=== PATIENT | male | born 1940 | race Caucasian/White ===

== ENCOUNTER 2021-02-26 13:12 | Outpatient (CLI) | payer MEDICARE, OTHER ==
[~2021-02-26 13:12] MED LIST: Iopamidol 370 76% 100 ML VIAL ONE
== END 2021-02-26 13:13 | disposition home or self-care (01) ==
LOC: BICCT 13:12
PROVIDERS: ATTEND Internal Medicine Cardiovascular Disease
DX: I71.4 Abdominal aortic aneurysm, without rupture (principal); K80.20 Calculus of gallbladder without cholecystitis without obstruction
CPT/HCPCS: 74174; Q9967

== ENCOUNTER 2021-11-17 10:11 | Emergency (ER) | payer MEDICARE, OTHER | END 2021-11-17 12:15 | disposition home or self-care (01) | LOC: ERS 10:11 | DX: K12.30 Oral mucositis (ulcerative), unspecified (principal); J32.9 Chronic sinusitis, unspecified; I48.91 Unspecified atrial fibrillation; G62.9 Polyneuropathy, unspecified; G47.30 Sleep apnea, unspecified; Z87.19 Personal history of other diseases of the digestive system | CPT/HCPCS: 99283 ==

== ENCOUNTER 2021-12-09 10:58 | Emergency (ER) | payer OTHER, MEDICARE ==
[2021-12-09] MEDS ORDERED: Ibuprofen 800 MG TAB ONE (11:33)
[2021-12-09] MEDS ORDERED: Acetaminophen 500 MG TAB ONE (11:33)
== END 2021-12-09 13:30 | disposition home or self-care (01) ==
LOC: ERS 10:58
DX: S02.2XXA Fracture of nasal bones, initial encounter for closed fracture (principal); S00.83XA Contusion of other part of head, initial encounter; S60.416A Abrasion of right little finger, initial encounter; W01.198A Fall on same level from slipping, tripping and stumbling with subsequent striking against other object, initial encounter; G47.30 Sleep apnea, unspecified; I48.91 Unspecified atrial fibrillation
CPT/HCPCS: 70450; 70486; 72125

== ENCOUNTER 2022-06-18 11:40 | Outpatient (CLI) | payer MEDICARE, OTHER | END 2022-06-18 11:41 | disposition home or self-care (01) | LOC: LABBT 11:40 | PROVIDERS: ATTEND Physician Assistant Medical | DX: Z20.822 Contact with and (suspected) exposure to COVID-19 (principal) | CPT/HCPCS: 87811 ==

== ENCOUNTER 2022-06-21 10:24 | Outpatient (CLI) | payer MEDICARE, OTHER | END 2022-06-21 10:25 | disposition home or self-care (01) | LOC: RAD 10:24 | PROVIDERS: ATTEND Physician Assistant Medical | DX: K22.70 Barrett's esophagus without dysplasia (principal); K58.1 Irritable bowel syndrome with constipation; R13.14 Dysphagia, pharyngoesophageal phase; K21.9 Gastro-esophageal reflux disease without esophagitis | CPT/HCPCS: 74220 ==

== ENCOUNTER 2022-06-27 13:15 | Outpatient (CLI) | payer MEDICARE, OTHER | END 2022-06-27 13:16 | disposition home or self-care (01) | LOC: LABBT 13:15 | PROVIDERS: ATTEND Physician Assistant Medical | DX: Z20.822 Contact with and (suspected) exposure to COVID-19 (principal) | CPT/HCPCS: 87811 ==

== ENCOUNTER 2023-05-28 12:51 | Emergency (ER) | payer MEDICARE, OTHER ==
[2023-05-28 14:10] LABS: SARS-CoV-2 NAA Rapid Test DETECTED (NotDetected)
== END 2023-05-28 14:35 | disposition home or self-care (01) ==
LOC: ERS 12:51
DX: U07.1 COVID-19 (principal)
CPT/HCPCS: 0240U; 71045; 93005

== ENCOUNTER 2023-06-02 13:26 | Emergency (ER) | payer MEDICARE, OTHER ==
[2023-06-02] MEDS ORDERED: Dexamethasone 4 MG TAB ONE (14:32)
[2023-06-02] MEDS ORDERED: Albuterol 200 PUFF INH ONE (14:32)
== END 2023-06-02 15:02 | disposition home or self-care (01) ==
LOC: ERS 13:26
DX: U07.1 COVID-19 (principal); I48.91 Unspecified atrial fibrillation
CPT/HCPCS: 71045; J8540

== ENCOUNTER 2023-10-12 10:44 | Emergency (ER) | payer MEDICARE, OTHER ==
[2023-10-12] MEDS ORDERED: Iopamidol-370 76% 500 ML MDV (1 ML CHARGE) ONE (11:23)
[2023-10-12 11:35] LABS: #Eosinphils 0.1 thou/uL (0.0-0.7); #Monocytes 0.5 thou/uL (0.11-0.59); #Neutrophils 3.8 thou/uL (1.40-6.50); %Basophils 0.5 % (0.0-1.0); %Eosinophils 1.2 % (0.0-10.0); %Lymphocytes 24.3 % (21.0-51.0); %Monocytes 8.2 % (0.0-10.0); %Neutrophils 65.6 % (42.0-75.0); Hematocrit 47.7 % (42.0-52.0); Hemoglobin 16.8 g/dL (14.0-18.0); Mean Corpuscular HGB CONC 35.2 g/dL (32.0-36.0); Mean Corpuscular Hemoglobin 32.6 pg (27.0-31.0); Mean Corpuscular Volume 92.4 fl (78.0-98.0); Mean Platelet Volume 10.5 fL (7.4-10.4); Platelet Count 115 10x3/uL (130-400); RBC Distribution Width 13.3 % (11.5-14.5); Red Blood Cell (RBC) Count 5.16 mill/uL (4.70-6.10); White Blood Cell (WBC) Count 5.8 10x3/uL (4.8-10.8)
[2023-10-12 12:03] LABS: Troponin I Less than 0.010 ng/mL (< 0.028)
[2023-10-12 12:28] LABS: Albumin 4.2 g/dL (3.4-4.8)
[2023-10-12 12:29] LABS: Chloride 104 mmol/L (98-107); Potassium 4.2 mmol/L (3.5-5.1); Sodium 137 mmol/L (136-145)
[2023-10-12 12:30] LABS: Calcium 8.8 mg/dL (7.8-10.44)
[2023-10-12 12:31] LABS: Glucose 246 mg/dL (83-110); Protein, Total 7.2 g/dL (5.8-8.1)
[2023-10-12 12:32] LABS: Bilirubin, Total 0.7 mg/dL (0.2-1.2); Carbon Dioxide 20 mmol/L (23-31)
[2023-10-12 12:33] LABS: Alkaline Phosphatase 78 U/L (40-110)
[2023-10-12 12:34] LABS: Calc. Creatinine Clearance 0 mL/min (70-130); Estimated GFR 85
[2023-10-12 12:35] LABS: BUN (Urea Nitrogen) 16 mg/dL (8.4-25.7)
[2023-10-12 12:36] LABS: ALT (SGPT) 41 U/L (8-55); AST (SGOT) 43 U/L (5-34); Magnesium 1.7 mg/dL (1.6-2.6)
[2023-10-12] MEDS ORDERED: Morphine 4 MG/ML VIAL ONE (13:20)
[2023-10-12] MEDS ORDERED: Ondansetron PF 4 MG/2 ML Vial ONE (13:20)
[2023-10-12 13:36] LABS: Anion Gap 17 mmol/L (10-20)
[2023-10-12] MEDS ORDERED: Acetaminophen 500 MG TAB ONE (14:34)
[2023-10-12] MEDS ORDERED: Ketorolac Tromethamine 30 MG (1 mL) VIAL ONE (14:34)
== END 2023-10-12 15:25 | disposition home or self-care (01) ==
LOC: ERS 10:44
DX: M54.50 Low back pain, unspecified (principal); E11.65 Type 2 diabetes mellitus with hyperglycemia
CPT/HCPCS: 71045; 71275; 74174; 80053; 83735; 84484; 85025; 93005; 96374; 96375; J1885; J2270; J2405; Q9967

== ENCOUNTER 2024-03-17 06:58 | Emergency (ER) | payer MEDICARE, OTHER ==
[2024-03-17 08:07] LABS: #Basophils 0.03 10x3/uL (0.0-0.2); %Basophils 0.5 % (0.0-1.0); %Eosinophils 1.8 % (0.0-10.0); %Lymphocytes 33.8 % (21.0-51.0); %Monocytes 6.6 % (0.0-10.0); Hematocrit 47.6 % (42.0-52.0); Mean Corpuscular HGB CONC 33.6 g/dL (32.0-36.0); Mean Corpuscular Hemoglobin 32.1 pg (27.0-31.0); Mean Corpuscular Volume 95.4 fL (78.0-98.0); Mean Platelet Volume 10.5 fL (7.4-10.4); Platelet Count 101 10x3/uL (130-400); RBC Distribution Width 13.8 % (11.5-14.5); Red Blood Cell (RBC) Count 4.99 mill/uL (4.70-6.10)
[2024-03-17 08:09] LABS: ALT (SGPT) 36 U/L (8-55); AST (SGOT) 39 U/L (5-34); Albumin 3.9 g/dL (3.4-4.8); Alkaline Phosphatase 71 U/L (40-110); Anion Gap 17 mmol/L (10-20); BUN (Urea Nitrogen) 14 mg/dL (8.4-25.7); Bilirubin, Total 0.5 mg/dL (0.2-1.2); CRP,High Sensitivity (Inhouse) 0.09 mg/dL (< or = 0.5); Calc. Creatinine Clearance 0 mL/min (70-130); Calcium 8.9 mg/dL (7.8-10.44); Carbon Dioxide 21 mmol/L (23-31); Chloride 105 mmol/L (98-107); Estimated GFR 87; Globulin 3.1 g/dL (2.4-3.5); Glucose 125 mg/dL (83-110); Potassium 4.3 mmol/L (3.5-5.1); Sodium 139 mmol/L (136-145)
[2024-03-17] MEDS ORDERED: Ketorolac Tromethamine 30 MG (1 mL) VIAL ONE (08:42)
[2024-03-17] MEDS ORDERED: Lidocaine 4% Patch TD SCH (09:30)
[2024-03-17] MEDS ORDERED: LIDOCAINE Patch Removal TOP SCH (21:30)
== END 2024-03-17 09:50 | disposition home or self-care (01) ==
LOC: ERS 06:58
DX: M25.572 Pain in left ankle and joints of left foot (principal); I48.91 Unspecified atrial fibrillation; G62.9 Polyneuropathy, unspecified; G47.30 Sleep apnea, unspecified; Z79.899 Other long term (current) drug therapy
CPT/HCPCS: 73610; 73630; 80053; 85025; 86141; J1885; 36415; 96372

== ENCOUNTER 2024-05-02 08:54 | Inpatient (IN) | payer MEDICARE, OTHER ==
[2024-05-02] MEDS ORDERED: Iopamidol-370 76% 500 ML MDV (1 ML CHARGE) ONE (11:44)
[2024-05-02 11:56] LABS: #Basophils 0.04 10x3/uL (0.0-0.2); %Basophils 0.4 % (0.0-1.0); %Eosinophils 0.9 % (0.0-10.0); %Monocytes 6.8 % (0.0-10.0); %Neutrophils 76.7 % (42.0-75.0); Hematocrit 47.5 % (42.0-52.0); Hemoglobin 16.5 g/dL (14.0-18.0); Mean Corpuscular HGB CONC 34.7 g/dL (32.0-36.0); Mean Corpuscular Hemoglobin 31.9 pg (27.0-31.0); Mean Corpuscular Volume 91.9 fL (78.0-98.0); Mean Platelet Volume 10.1 fL (7.4-10.4); Platelet Count 114 10x3/uL (130-400); RBC Distribution Width 13.3 % (11.5-14.5); Red Blood Cell (RBC) Count 5.17 mill/uL (4.70-6.10)
[2024-05-02 12:03] LABS: ALT (SGPT) 32 U/L (8-55); AST (SGOT) 34 U/L (5-34); Albumin 4.2 g/dL (3.4-4.8); Alkaline Phosphatase 67 U/L (40-110); Anion Gap 18 mmol/L (10-20); BUN (Urea Nitrogen) 19 mg/dL (8.4-25.7); Bilirubin, Total 0.9 mg/dL (0.2-1.2); Calc. Creatinine Clearance 0 mL/min (70-130); Calcium 9.6 mg/dL (7.8-10.44); Carbon Dioxide 22 mmol/L (23-31); Chloride 103 mmol/L (98-107); Estimated GFR 85; Globulin 3.2 g/dL (2.4-3.5); Glucose 143 mg/dL (83-110); Potassium 4.5 mmol/L (3.5-5.1); Protein, Total 7.4 g/dL (5.8-8.1); Sodium 138 mmol/L (136-145)
[2024-05-02] MEDS ORDERED: Ondansetron PF 4 MG/2 ML Vial ONE (14:00)
[2024-05-02] MEDS ORDERED: Morphine 4 MG/ML VIAL ONE (14:00)
[2024-05-02] MEDS ORDERED: Cefepime 2 GM VIAL ONE (14:01)
[2024-05-02] MEDS ORDERED: Sodium Chloride 0.9% 100 ML ONE (14:12)
[2024-05-02] MEDS ORDERED: cefTRIAXone (ROCEPHIN) 2 GM VIAL ONE (14:12)
[2024-05-02] MEDS ORDERED: Ondansetron ODT 4 MG TAB PO PRN (14:35)
[2024-05-02] MEDS ORDERED: HYDROcodone/Acetaminophen 5/325 mg Tablet ONE (15:04)
[2024-05-02] MEDS: Vancomycin (BATCH) 2 GM in Premix 1 BAG IVPB SCH (16:04)
[2024-05-02 16:12] VITALS: BMI 30.1
[2024-05-02] MEDS ORDERED: Morphine 4 MG/ML VIAL SLOW IVP PRN ×2 (16:31)
[2024-05-02] MEDS: Acetaminophen/Codeine 30-300mg Tablet PO PRN (16:54)
[2024-05-02] MEDS: SODIUM CHLORIDE 0.9% IVPB SCH (23:32)
[2024-05-02] MEDS: VANCOMYCIN IVPB SCH (23:32)
[2024-05-03] MEDS: Cefepime 2 GM in Sodium Chloride 0.9% 100 ML IVPB SCH (01:38)
[2024-05-03 07:20] LABS: Vancomycin, Random 17.1 ug/mL (See Comment)
[2024-05-03] MEDS: Finasteride 5 MG TAB PO SCH (08:46)
[2024-05-03] MEDS: Enoxaparin 40 MG (0.4 mL) SYRINGE SC SCH (08:46)
[2024-05-03] MEDS: Gabapentin 100 MG CAP PO SCH (08:46)
[2024-05-03] MEDS: Multivit, Therapeutic 1 TAB PO SCH (08:46)
[2024-05-03] MEDS: Pantoprazole DR 40 MG TAB PO SCH (08:46)
[2024-05-03] MEDS ORDERED: Lubiprostone 8 MCG CAP PO SCH (09:00)
[2024-05-03] MEDS ORDERED: MULTIVITAMIN PO SCH (09:00)
[2024-05-03] MEDS: Ampicillin/Sulbactam 3 GM in Sodium Chloride 0.9% 100 ML IVPB SCH (15:39)
[2024-05-03] MEDS ORDERED: Lubiprostone 24 MCG CAP PO SCH (17:00)
[2024-05-03] MEDS: Lubiprostone 8 MCG CAP PO SCH (17:21)
[2024-05-03] MEDS: Budesonide 0.5 MG/2 ML NEB INH SCH (19:27)
[2024-05-03] MEDS ORDERED: Budesonide 0.5 MG/2 ML NEB INH SCH (21:00)
[2024-05-03] MEDS ORDERED: Non-Formulary Item 1 EACH (Melatonin [Melatonin] 1 MG Tablet) PO SCH (21:00)
[2024-05-03] MEDS: Rosuvastatin 20 MG TAB PO SCH (21:07)
[2024-05-03] MEDS: Melatonin 3 MG TAB PO SCH (21:07)
[2024-05-04 06:37] LABS: #Basophils 0.04 10x3/uL (0.0-0.2); %Basophils 0.6 % (0.0-1.0); %Eosinophils 1.9 % (0.0-10.0); %Neutrophils 62.2 % (42.0-75.0); Hemoglobin 15.5 g/dL (14.0-18.0); Mean Corpuscular HGB CONC 33.7 g/dL (32.0-36.0); Mean Corpuscular Hemoglobin 31.9 pg (27.0-31.0); Mean Corpuscular Volume 94.7 fL (78.0-98.0); Mean Platelet Volume 10.3 fL (7.4-10.4); Platelet Count 102 10x3/uL (130-400); RBC Distribution Width 13.5 % (11.5-14.5); Red Blood Cell (RBC) Count 4.86 mill/uL (4.70-6.10)
[2024-05-04 06:52] LABS: Anion Gap 12 mmol/L (10-20); BUN (Urea Nitrogen) 11 mg/dL (8.4-25.7); Calc. Creatinine Clearance 92 mL/min (70-130); Calcium 9.3 mg/dL (7.8-10.44); Carbon Dioxide 30 mmol/L (23-31); Chloride 102 mmol/L (98-107); Estimated GFR 85; Glucose 119 mg/dL (83-110); Potassium 4.2 mmol/L (3.5-5.1); Sodium 140 mmol/L (136-145)
[2024-05-04] MEDS: Senokot S 8.6-50 MG TAB PO SCH (09:30)
[2024-05-04] MEDS: Polyethylene Glycol 3350 17 GM Packet PO PRN (09:30)
[2024-05-04] MEDS: traMADol HCl 50 MG TAB PO PRN (11:40)
[2024-05-04] MEDS: Acetaminophen 325 MG TAB PO PRN (15:07)
[2024-05-04] MEDS: Methylcellulose 500 MG TAB PO SCH (20:21)
[2024-05-05 06:15] LABS: #Basophils 0.03 10x3/uL (0.0-0.2); %Basophils 0.5 % (0.0-1.0); %Monocytes 9.8 % (0.0-10.0); %Neutrophils 61.2 % (42.0-75.0); Hematocrit 44.9 % (42.0-52.0); Hemoglobin 15.2 g/dL (14.0-18.0); Mean Corpuscular HGB CONC 33.9 g/dL (32.0-36.0); Mean Corpuscular Hemoglobin 31.7 pg (27.0-31.0); Mean Corpuscular Volume 93.5 fL (78.0-98.0); Mean Platelet Volume 10.3 fL (7.4-10.4); Platelet Count 117 10x3/uL (130-400); RBC Distribution Width 13.2 % (11.5-14.5)
[2024-05-05 06:37] LABS: Carbon Dioxide 27 mmol/L (23-31); Chloride 102 mmol/L (98-107); Potassium 3.8 mmol/L (3.5-5.1); Sodium 139 mmol/L (136-145)
[2024-05-05 06:38] LABS: Anion Gap 14 mmol/L (10-20); BUN (Urea Nitrogen) 12 mg/dL (8.4-25.7); Calc. Creatinine Clearance 98 mL/min (70-130); Calcium 9.4 mg/dL (7.8-10.44); Estimated GFR 87; Glucose 129 mg/dL (83-110)
[2024-05-05] MEDS: Magnesium Citrate 300 ML BOT PO SCH (10:06)
[2024-05-05] MEDS ORDERED: Sodium Bicarbonate 2.5 MEQ/5 ML SDV ONE (14:38)
[2024-05-05] MEDS ORDERED: Lidocaine 1% PF 5 ML VIAL ONE (14:38)
[2024-05-05] MEDS ORDERED: Iopamidol 30 ML ONE (15:24)
[2024-05-06 06:13] LABS: #Basophils 0.04 10x3/uL (0.0-0.2); %Basophils 0.6 % (0.0-1.0); %Eosinophils 2.3 % (0.0-10.0); %Lymphocytes 29.8 % (21.0-51.0); %Monocytes 9.4 % (0.0-10.0); %Neutrophils 57.4 % (42.0-75.0); Hematocrit 43.2 % (42.0-52.0); Hemoglobin 14.8 g/dL (14.0-18.0); Mean Corpuscular HGB CONC 34.3 g/dL (32.0-36.0); Mean Corpuscular Volume 93.5 fL (78.0-98.0); Mean Platelet Volume 10.2 fL (7.4-10.4); Platelet Count 127 10x3/uL (130-400); RBC Distribution Width 13.2 % (11.5-14.5); Red Blood Cell (RBC) Count 4.62 mill/uL (4.70-6.10)
[2024-05-06 06:37] LABS: Anion Gap 10 mmol/L (10-20); BUN (Urea Nitrogen) 11 mg/dL (8.4-25.7); Calc. Creatinine Clearance 106 mL/min (70-130); Calcium 9.3 mg/dL (7.8-10.44); Carbon Dioxide 28 mmol/L (23-31); Chloride 103 mmol/L (98-107); Estimated GFR 89; Glucose 132 mg/dL (83-110); Potassium 3.7 mmol/L (3.5-5.1); Sodium 137 mmol/L (136-145)
[2024-05-06 06:38] LABS: CRP,High Sensitivity (Inhouse) 1.91 mg/dL (< or = 0.5)
[2024-05-06] MEDS: Ertapenem 1 GM in Sodium Chloride 0.9% 100 ML IVPB SCH (12:52)
[2024-05-07 05:08] LABS: #Basophils 0.04 10x3/uL (0.0-0.2); %Basophils 0.6 % (0.0-1.0); %Lymphocytes 24.5 % (21.0-51.0); %Monocytes 8.9 % (0.0-10.0); %Neutrophils 63.7 % (42.0-75.0); Hematocrit 45.3 % (42.0-52.0); Hemoglobin 15.7 g/dL (14.0-18.0); Mean Corpuscular HGB CONC 34.7 g/dL (32.0-36.0); Mean Corpuscular Hemoglobin 31.8 pg (27.0-31.0); Mean Corpuscular Volume 91.9 fL (78.0-98.0); Mean Platelet Volume 10.5 fL (7.4-10.4); Platelet Count 130 10x3/uL (130-400); RBC Distribution Width 13.2 % (11.5-14.5); Red Blood Cell (RBC) Count 4.93 mill/uL (4.70-6.10)
[2024-05-07 05:10] LABS: Anion Gap 14 mmol/L (10-20); BUN (Urea Nitrogen) 13 mg/dL (8.4-25.7); Calc. Creatinine Clearance 106 mL/min (70-130); Calcium 9.5 mg/dL (7.8-10.44); Carbon Dioxide 27 mmol/L (23-31); Chloride 101 mmol/L (98-107); Estimated GFR 89; Glucose 143 mg/dL (83-110); Potassium 4.2 mmol/L (3.5-5.1); Sodium 138 mmol/L (136-145)
[2024-05-07 07:34] VITALS: BP 146/84; TEMP 98.2
[2024-05-07] MEDS ORDERED: ALFUZOSIN 10 MG DT SCH (08:00)
[2024-05-07] MEDS: Meropenem 1 GM in Sodium Chloride 0.9% 100 ML IVPB SCH (12:58)
[2024-05-07] MEDS ORDERED: Meropenem 1 GM in Sodium Chloride 0.9% 100 ML IVPB SCH ×2 (13:00→22:00)
== END 2024-05-07 14:34 | disposition home or self-care (01) | DRG 158 ==
LOC: ERS 08:54 → T4-A 15:29
PROVIDERS: ADMIT Internal Medicine; ATTEND Internal Medicine
PROC: 5A09357 Assistance with Respiratory Ventilation, Less than 24 Consecutive Hours, Continuous Positive Airway Pressure (ICD-10-PCS; 2024-05-02)
PROC: 02HV33Z Insertion of Infusion Device into Superior Vena Cava, Percutaneous Approach (ICD-10-PCS; principal; 2024-05-05)
PROC: B5180ZA Fluoroscopy of Superior Vena Cava using High Osmolar Contrast, Guidance (ICD-10-PCS; 2024-05-05)
PROC: 3E04329 Introduction of Other Anti-infective into Central Vein, Percutaneous Approach (ICD-10-PCS; 2024-05-05)
PROC: B548ZZA Ultrasonography of Superior Vena Cava, Guidance (ICD-10-PCS; 2024-05-05)
DX: M27.2 Inflammatory conditions of jaws (principal); L03.211 Cellulitis of face; K04.7 Periapical abscess without sinus; I10 Essential (primary) hypertension; E78.5 Hyperlipidemia, unspecified; E66.9 Obesity, unspecified; K21.9 Gastro-esophageal reflux disease without esophagitis; N40.0 Benign prostatic hyperplasia without lower urinary tract symptoms; M19.90 Unspecified osteoarthritis, unspecified site; D69.6 Thrombocytopenia, unspecified; I48.91 Unspecified atrial fibrillation; Z88.8 Allergy status to other drugs, medicaments and biological substances; Z98.890 Other specified postprocedural states; Z98.49 Cataract extraction status, unspecified eye; Z96.649 Presence of unspecified artificial hip joint; Z96.659 Presence of unspecified artificial knee joint; Z93.3 Colostomy status; Z68.30 Body mass index [BMI] 30.0-30.9, adult; Z71.3 Dietary counseling and surveillance
CPT/HCPCS: 36415; 36569; 70491; 76937; 77001; 80048; 80053; 80202; 82565; 83605; 85025; 86141; 87040; 94640; 94660; 96365; 96375; C1751; J0295; J0692; J0696; J1335; J1650; J2185; J2270; J2405; J3370; J3490; J7050; J7626; Q9967

== ENCOUNTER 2025-06-10 09:33 | Outpatient (CLI) | payer MEDICARE, OTHER | END 2025-06-10 09:34 | disposition home or self-care (01) | LOC: BICCT 09:33 | PROVIDERS: ATTEND Family Medicine | DX: R05.8 Other specified cough (principal); J47.9 Bronchiectasis, uncomplicated; J98.4 Other disorders of lung | CPT/HCPCS: 71250 ==